=== PATIENT | male | born 1940 | race Caucasian/White ===

== ENCOUNTER 2018-02-19 20:37 | Emergency (ER) | payer SELFPAY ==
[~2018-02-19] VITALS: Ht 175.3 cm; Wt 89.0 kg
[2018-02-19 22:58] VITALS: BP 149/75
[2018-02-19] MEDS ORDERED: DIAZEPAM 2 MG TABLET PO ONE (23:00)
[2018-02-19] MEDS ORDERED: DEXAMETHASONE 10 MG/ML VIAL IM ONE (23:00)
[2018-02-19] MEDS ORDERED: ACETAMINOPHEN 325MG TABLET PO ONE (23:00)
== END 2018-02-19 23:00 | disposition home or self-care (01) ==
LOC: ER 20:37
DX: M54.41 Lumbago with sciatica, right side (principal); M79.651 Pain in right thigh; Z87.891 Personal history of nicotine dependence
CPT/HCPCS: 96372; 99283; J1100